=== PATIENT | female | born 1985 | race Caucasian/White ===

== ENCOUNTER 2016-10-28 21:56 | Emergency (ER) | payer OTHER ==
[~2016-10-28] VITALS: Ht 152.4 cm; Wt 59.0 kg
[~2016-10-28 21:56] MED LIST: IBUPROFEN800 MG PO; PERCOCET 325 MG1 TA2 PO
[2016-10-28 22:04] VITALS: BP 110/74
--- NOTE | 2016-10-28 22:35 | ED HAND/WRIST INJURY COMPLAINT ---
History of Present Illness General Chief Complaint: Laceration Procedure Stated Complaint: "LT RING FINGER LAC" Source: patient Exam Limitations: no limitations Vital Signs & Intake/Output Vital Signs & Intake/Output Vital Signs Date Time Temp Pulse Resp B/P Pulse O2 O2 Flow FiO2 Ox Delivery Rate 10/283 100 Room Air 10/28 2203 98.2 67 20 110/74 98 Room Air ED Intake and Output 10/29 0000 10/28 1200 Intake Total Output Total Balance Patient 130 lb Weight Allergies Coded Allergies: NO KNOWN ALLERGIES (10/28/16) Reconcile Medications No Known Home Medications Triage Note: TRIAGE: PT TO ER WITH [facility]IECE WHO ASSISTS WITH TRANSLATION PATIENT IS KHMER SPEAKING. 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 HAS BANDAID DRESSING IN PLACE AT TRIAGE. Triage Nurses Notes Reviewed? yes Occurred: just prior to arrival Duration: minute(s):, constant, continues in ED Timing: single episode today Injury Environment: home Pain/Injury Location: Left: 3rd finger. No Modifying Factors: none : No Patient currently breastfeeds: No HPI: 31-year-old female comes into emergency room with laceration to left third finger. Patient cut it on a can. Assisted bleeding. Denies any numbness tingling. Mild throbbing pain. Denies any other associated symptoms. (CHOCO MCKEON) Past History Travel History Traveled to [place] past 21 day No Medical History Any Pertinent Medical History? 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 No (CHOCO MCKEON) Review of Systems Review of Systems Constitutional: Reports: no symptoms. EENTM: Reports: no symptoms. Respiratory: Reports: no symptoms. Cardiovascular: Reports: no symptoms. GI: Reports: no symptoms. Genitourinary: Reports: no symptoms. Musculoskeletal: Reports: see HPI. Skin: Reports: see HPI. Neurological/Psychological: Reports: no symptoms. Hematologic/Endocrine: Reports: no symptoms. Immunologic/Allergic: Reports: no symptoms. All Other Systems: Reviewed and Negative (CHOCO MCKEON) Physical Exam Physical Exam General Appearance: well developed/nourished Head: atraumatic Eyes: Bilateral: normal appearance. Ears, Nose, Throat: normal ENT inspection, hearing grossly normal Neck: normal inspection Cardiovascular/Respiratory: no respiratory distress Back: normal inspection Hand Left: 3rd finger (laceration 0.5 cm) Hand Right: normal inspection Neurologic/Tendon: normal sensation, normal motor functions, normal tendon functions Skin: intact, normal color, warm/dry Lymphatic: no anterior cervical sahil (CHOCO MCKEON) Progress Differential Diagnosis: dislocation, fracture, gout, paronychia, sprain, tenosynovitis, tendon laceration, Plan of Care: 10/28/2016 11:09:19 PM Patient clinically looks well. Nontoxic-appearing. In no apparent distress. (CHOCO MCKEON) Departure Departure Disposition: HOME OR SELF CARE Condition: Stable Clinical Impression Primary Impression: Finger laceration Referrals: SADI SOLOMON APRN (PCP/Family) Additional Instructions: Return in 7-10 days for suture removal. Change dressing every other day with bacitracin and dry dressing. Only use bacitracin for the first 5 days. After dry dressing only. Watch for signs of infection such as redness on discharge fever chills. Please go over all results of today's visit with your primary care doctor. Contact your primary care doctor to let them know you were here in the emergency room. There may be nonspecific findings which may not be related to your visit today here in the emergency room but may require further evaluation and chronic monitoring by your primary care doctor. If you had a laceration today the chance of foreign body always remains. You should follow-up with your primary care doctor for recheck in 3-5 days for a wound check. If you had an x-ray done there is a chance that a fracture could have been missed on initial read and you should follow-up with your primary care doctor for repeat x-rays if symptoms persist. If your blood pressure was elevated here in the emergency room please have rechecked by her primary care doctor within the next 48 hours by your primary care doctor. If you were prescribed a narcotic here in the emergency room or any type of controlled substances you're not allowed to drive while taking this medication or operate any type of heavy machinery. Narcotics can make you feel lightheaded dizziness nausea and can cause constipation. You may need to orange picker a stool softener. Thank you for choosing [facility] emergency room. Please return to the emergency room immediately if you have any other concerns worsening of symptoms. Departure Forms: Customer Survey General Discharge Information Prescriptions: Current Visit Scripts No Known Home Medications (CHOCO MCKEON) PA/AUTOMATION MACHINE OPERATOR Co-Sign Statement Statement: ED Attending supervision documentation- [] I saw and evaluated the patient. I have also reviewed all the pertinent lab results and diagnostic results. I agree with the findings and the plan of care as documented in the PA's/AUTOMATION MACHINE OPERATOR's documentation. [X] I have reviewed the ED Record and agree with the PA's/AUTOMATION MACHINE OPERATOR's documentation. [] Additions or exceptions (if any) to the PAs/AUTOMATION MACHINE OPERATOR's note and plan are summarized below: [] (MALLORY GODFREY,YONY) Procedures Laceration/Wound Repair Laceration/Wound Repair: Wound Location: upper extremity Wound's Depth, Shape: linear Wound Length (cm): 0.5 Betadine Prep? Yes Anesthesia: digit block, 2% lidocaine Volume Anesthetic (ccs): 4 Suture Size/Type: 6:0, nylon Number of Sutures: 3 Sterile Dressing Applied: Yes Tetanus Status: not up to date (CHOCO MCKEON)
== END 2016-10-28 23:16 ==
LOC: ERH 21:56
DX: S61.213A Laceration without foreign body of left middle finger without damage to nail, initial encounter (principal); W26.8XXA Contact with other sharp object(s), not elsewhere classified, initial encounter
CPT/HCPCS: J2001

== ENCOUNTER 2016-11-06 15:18 | Emergency (ER) | payer OTHER ==
[~2016-11-06] VITALS: Ht 152.4 cm; Wt 59.0 kg
[2016-11-06 15:24] VITALS: BP 100/65
--- NOTE | 2016-11-06 15:47 | ED GENERAL ADULT ---
History of Present Illness General Chief Complaint: Suture Removal/Wound Recheck Stated Complaint: SUTURE REMOVAL Source: patient, family Exam Limitations: language barrier Vital Signs & Intake/Output Vital Signs & Intake/Output Vital Signs Date Time Temp Pulse Resp B/P Pulse O2 O2 Flow FiO2 Ox Delivery Rate 11/06 1524 97.6 78 18 100/65 98 Room Air Allergies Coded Allergies: NO KNOWN ALLERGIES (10/28/16) Reconcile Medications No Known Home Medications Triage Note: 31 Y/O FEMALE REQUESTING SUTURE REMOVAL TO L 4TH FINGER; PLACED LAST SUNDAY. PT DENIES COMPLAINTS; SITE APPEARS WELL HEALED WITH NO S/S INFECTION. Triage Nurses Notes Reviewed? yes Onset: Abrupt Duration: day(s): Timing: recent history : No Patient currently breastfeeds: No HPI: 11/06/16 4 PM 31-year-old female presents with chief complaint of suture removal from the left ring finger. She status post laceration that was sutured 9 days ago. She has no complaints. 3 sutures were removed from the distal aspect of the left ring finger The onset of the symptoms were abrupt, the duration was days ago, the severity was significant as her symptoms required to come to the emergency department for care. The sutures were removed, bacitracin a Band-Aid was applied. She will use a Band-Aid for 3 days and follow-up as needed. No associated fever or discharge. Past History Travel History Traveled to [place] past 21 day No Medical History Any Pertinent Medical History? 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 No Review of Systems Review of Systems Constitutional: Denies: fever. EENTM: Reports: no symptoms. Respiratory: Reports: no symptoms. Cardiovascular: Reports: no symptoms. GI: Reports: no symptoms. Genitourinary: Reports: no symptoms. Musculoskeletal: Reports: no symptoms. Skin: Reports: see HPI. Neurological/Psychological: Reports: no symptoms. Hematologic/Endocrine: Reports: no symptoms. Immunologic/Allergic: Reports: no symptoms. Physical Exam Physical Exam General Appearance: alert, awake, anxious, mild distress Head: atraumatic, normal appearance Eyes: Bilateral: normal appearance. Ears, Nose, Throat: normal ENT inspection Neck: supple Respiratory: normal breath sounds Cardiovascular: regular rate/rhythm Peripheral Pulses: 4+ radial (L) Back: normal range of motion Core Measures ACS in differential dx? No CVA/TIA Diagnosis: No Severe Sepsis Present: No Septic Shock Present: No Progress Differential Diagnoses I considered the following diagnoses in my evaluation of the patient: [Wound infection, neuropraxia, tendon injury Plan of Care: Follow-up as needed Initial ED EKG: none Departure Departure Disposition: HOME OR SELF CARE Condition: Stable Clinical Impression Primary Impression: Visit for suture removal Referrals: SADI SOLOMON APRN (PCP/Family) Departure Forms: Customer Survey General Discharge Information Prescriptions: Current Visit Scripts No Known Home Medications Critical Care Note Critical Care Note Critical Care Time: non-applicable
== END 2016-11-06 16:07 ==
LOC: ERH 15:18
DX: S61.214A Laceration without foreign body of right ring finger without damage to nail, initial encounter (principal); W45.8XXA Other foreign body or object entering through skin, initial encounter
CPT/HCPCS: 99281